=== PATIENT | male | born 1945 | race Caucasian/White ===

== ENCOUNTER 2017-01-31 23:58 | Emergency (ER) | payer MEDICARE, BC ==
[2017-02-01 00:18] VITALS: BP 138/91
--- NOTE | 2017-02-01 00:35 | EDM.PDOC ---
ED HPI GENERAL MEDICAL PROBLEM - General Chief Complaint: ENT Problem Stated Complaint: PAIN INFECTION PAIN Time Seen by Provider: 02/01/17 00:10 Source of Information: Reports: Patient History Limitations: Reports: No Limitations - History of Present Illness INITIAL COMMENTS - FREE TEXT/NARRATIVE: 71-year-old male with right sided maxillary sinus pressure that is very painful and keeping him awake. He gets fairly significant sinus infections several times a year, he was seen in the clinic earlier today and started on doxycycline. He is using Afrin nasal spray as well as full dose ibuprofen but just not getting any relief. Onset: Gradual (Over the past several days) Quality: Reports: Sharp, Stabbing, Throbbing Severity: Moderate Associated Symptoms: Reports: Headaches. Denies: Chest Pain, Fever/Chills, Nausea/Vomiting, Shortness of Breath Face Pain Score (Numeric/FACES): 6 - Related Data Allergies Allergy/AdvReac Type Severity Reaction Status Date / Time amoxicillin trihydrate Allergy Cannot Verified 02/01/17 00:05 [From Augmentin] Remember potassium clavulanate Allergy Cannot Verified 02/01/17 00:05 [From Augmentin] Remember Home Meds: Home Meds Aspirin [Ecotrin] 325 mg PO DAILY 08/18/15 [History] Insulin Glargine,Hum.Rec.Anlog [Lantus Solostar] 25 unit SQ BID 08/18/15 [ History] Lisinopril 30 mg PO DAILY 08/18/15 [History] Loratadine [Claritin] 10 mg PO DAILY 08/18/15 [History] Metoprolol Tartrate [Lopressor] 25 mg PO BID 08/18/15 [History] Tadalafil [Cialis] 10 mg PO DAILY PRN 08/18/15 [History] atorvaSTATin [Lipitor] 80 mg PO BEDTIME 08/18/15 [History] metFORMIN HCl [Metformin HCl] 1,000 mg PO BID 08/19/15 [History] Doxycycline Monohydrate 100 mg PO BID 02/01/17 [History] amLODIPine Besylate [Norvasc] 2.5 mg PO DAILY 02/01/17 [History] Past Medical History HEENT History: Reports: Allergic Rhinitis, Impaired Vision, Sinusitis Other HEENT History: wears reading glasses Cardiovascular History: Reports: Bypass, CAD, High Cholesterol, Hypertension Respiratory History: Reports: Sleep Apnea Gastrointestinal History: Reports: Colon Polyp Genitourinary History: Reports: Renal Calculus Musculoskeletal History: Reports: Arthritis, Other (See Below) Other Musculoskeletal History: rotator cuff injury right side Neurological History: Reports: Concussion Endocrine/Metabolic History: Reports: Diabetes, Type II, IDDM - Infectious Disease History Infectious Disease History: Reports: Chicken Pox, Influenza, Measles, Mumps - Past Surgical History HEENT Surgical History: Reports: Cataract Surgery Cardiovascular Surgical History: Reports: Coronary Artery Bypass GI Surgical History: Reports: Colonoscopy, Hernia Repair/Other, Polypectomy Social & Family History - Family History Family Medical History: Noncontributory - Tobacco Use Smoking Status *Q: Never Smoker Years of Tobacco use: 22 Used Tobacco, but Quit: Yes Month Tobacco Last Used: 05-19-1990 Second Hand Smoke Exposure: No - Caffeine Use Caffeine Use: Reports: Coffee - Alcohol Use Days Per Week of Alcohol Use: 7 Number of Drinks Per Day: 3 Total Drinks Per Week: 21 - Recreational Drug Use Recreational Drug Use: No ED ROS ENT - Review of Systems Review Of Systems: See Below Constitutional: Denies: Fever, Chills HEENT: Reports: Sinus Problem. Denies: Ear Pain, Throat Pain Respiratory: Denies: Shortness of Breath Cardiovascular: Denies: Chest Pain GI/Abdominal: Denies: Abdominal Pain, Nausea, Vomiting Skin: Reports: No Symptoms Neurological: Reports: Headache Psychiatric: Reports: No Symptoms ED EXAM, ENT - Physical Exam Exam: See Below Exam Limited By: No Limitations General Appearance: Alert, No Apparent Distress (Looks uncomfortable but not distressed) Nose: Other (Very tender to palpation and percussion of the maxillary and ethmoid sinus on the right side) Respiratory/Chest: No Respiratory Distress Course - Vital Signs Last Recorded V/S: Last Vital Signs Temp 97.4 F 02/01/17 00:19 Pulse 64 02/01/17 00:19 Resp 16 02/01/17 00:19 BP 138/91 H 02/01/17 00:19 Pulse Ox 94 L 02/01/17 00:19 - Re-Assessments/Exams Free Text/Narrative Re-Assessment/Exam: 02/01/17 00:33 Patient will be given 10 Vicodin for extra pain control as he continues his antibiotic and ibuprofen. He can recheck in 2-3 days if not improving satisfactorily despite the antibiotic. Departure - Departure Time of Disposition: 00:46 Disposition: Home, Self-Care 01 Condition: Good Clinical Impression: Sinusitis, acute Qualifiers: Sinusitis location: maxillary Recurrence: recurrent Qualified Code(s): J01.01 - Acute recurrent maxillary sinusitis - Discharge Information Instructions: Sinusitis, Adult, [id number] Referrals: Westley Carey MD [Primary Care Provider] - Forms: ED Department Discharge Care Plan Goals: Continue with antibiotic as prescribed, ibuprofen, and Afrin sprays. Use hydrocodone for extra pain control if needed. Consider rechecking in 2-3 days if not improving satisfactorily or return sooner if worsening such as fever, vomiting, or worsening pain
== END 2017-02-01 00:47 | disposition home or self-care (01) ==
LOC: JP.ED 23:58
DX: J01.01 Acute recurrent maxillary sinusitis (principal); E11.9 Type 2 diabetes mellitus without complications; I10 Essential (primary) hypertension; Z87.891 Personal history of nicotine dependence; Z79.4 Long term (current) use of insulin; Z79.82 Long term (current) use of aspirin; Z79.899 Other long term (current) drug therapy; Z88.1 Allergy status to other antibiotic agents
CPT/HCPCS: 99283

== ENCOUNTER 2017-08-19 06:36 | Day surgery (SDC) | payer MEDICARE, BC ==
[~2017-08-19 06:36] MED LIST: Lactated Ringers 1,000 ML IV SCH
[2017-08-19] MEDS ORDERED: Midazolam 1 MG/ML 2 ML SDV ONE (07:28)
[2017-08-19] MEDS ORDERED: Propofol 200 MG/20 ML SDV ONE (07:28)
[2017-08-19] MEDS ORDERED: fentaNYL 100 MCG/2 ML SDV ONE (07:28)
[2017-08-19 09:23] VITALS: BP 134/62
--- NOTE | 2017-08-19 12:18 | OR ---
DATE OF PROCEDURE: 08/19/2017 PREOPERATIVE DIAGNOSIS: History of colon polyps. POSTOPERATIVE DIAGNOSES: 1. Diverticulosis. 2. Multiple small colon polyps. 3. History of colon polyps. PROCEDURE PERFORMED: Colonoscopy to the cecum with biopsy resection of small polyps at proximal right colon, distal right colon, proximal transverse colon, 15 cm from the anal verge and distal rectal polyp. SURGEON: Edgard Melo MD. ANESTHESIA: IV anesthesia with monitored anesthesia care. INDICATION: This 71-year-old white male is here for a colonoscopy. He has a history of multiple colon polyps removed in the past. His last colonoscopic exam, he says , was done two years ago. I counseled him for the procedure, including risks and alternatives, and he gave his informed consent to proceed. DESCRIPTION OF PROCEDURE: The patient was placed in the left lateral decubitus position. IV anesthesia was administered by the Anesthesia Service. Time-out was held. A rectal exam was performed, which was unremarkable. The flexible video Olympus colonoscope was introduced through his anus, up his rectum and out his colon all the way to the cecum. En route, we saw multiple left-sided diverticula. There was no bleeding or inflammation associated with any of them. Once the cecum was reached, the scope was slowly withdrawn examining the mucosa throughout. In the proximal right colon, a small polyp was seen, which was removed with the biopsy forceps. Another small polyp was seen in the distal right colon, which again was removed with the biopsy forceps. In the proximal transverse colon, a third polyp was removed with the biopsy forceps. The scope was then withdrawn further with no other neoplastic lesions seen until we reached 15 cm from the anal verge. Here, a small polyp was seen which was removed with the biopsy forceps. The scope was brought back into the rectum, where it was retroflexed. The distal rectum showed a small polyp, which was removed with the biopsy forceps. The scope was straightened and removed. He tolerated the procedure well. Edgard Melo MD /[id number] MTDD
== END 2017-08-19 09:33 | disposition home or self-care (01) ==
LOC: JP.SDS 06:36
PROVIDERS: ATTEND Surgery
DX: D12.2 Benign neoplasm of ascending colon (principal); D12.4 Benign neoplasm of descending colon; D12.3 Benign neoplasm of transverse colon; K63.5 Polyp of colon; K62.1 Rectal polyp; K57.30 Diverticulosis of large intestine without perforation or abscess without bleeding; I12.9 Hypertensive chronic kidney disease with stage 1 through stage 4 chronic kidney disease, or unspecified chronic kidney disease; E11.22 Type 2 diabetes mellitus with diabetic chronic kidney disease; N18.9 Chronic kidney disease, unspecified; E66.9 Obesity, unspecified; G47.33 Obstructive sleep apnea (adult) (pediatric); Z87.891 Personal history of nicotine dependence; Z86.010 Personal history of colon polyps; Z88.1 Allergy status to other antibiotic agents
CPT/HCPCS: 45380; J2250; J2704; J3010; J7120; 88305

== ENCOUNTER 2019-08-20 06:22 | Day surgery (SDC) | payer BC, MEDICARE ==
[2019-08-20] MEDS ORDERED: Sodium Chloride 0.9% 1,000 ML IV SCH (07:00)
[2019-08-20] MEDS ORDERED: Midazolam 1 MG/ML 2 ML SDV ONE (07:20)
[2019-08-20] MEDS ORDERED: Propofol 200 MG/20 ML SDV ONE (07:20)
[2019-08-20] MEDS ORDERED: fentaNYL 100 MCG/2 ML SDV ONE (07:20)
--- NOTE | 2019-08-20 09:55 | OR ---
DATE OF PROCEDURE: 08/20/2019 SURGEON: Norman Fernández MD PROCEDURE: Colonoscopy. FINDINGS: 1. Transverse colon polyp, approximately 5 mm, completely removed using cold biopsy forceps. 2. Mass at 40 cm, most consistent with lipoma (biopsied multiple times using cold biopsy forceps). 3. Sigmoid colon polyp approximately 5 mm, completely removed using cold biopsy forceps. 4. Diverticulosis, moderate, mostly limited to sigmoid colon. PREOPERATIVE DIAGNOSIS: Screening colonoscopy. POSTOPERATIVE DIAGNOSIS: Screening colonoscopy. RISKS: Risks, benefits, alternatives, and limitations including, but not limited to infection, bleeding, and perforation were explained to the patient, who wished to proceed. PROCEDURE IN DETAIL: The patient was placed in left lateral decubitus position. Digital rectal exam was performed without abnormality. Scope was introduced and advanced atraumatically to the ileocecal valve. A photo was taken of this. The scope was brought back through the ascending, transverse, descending colon, and retroflexed. The aforementioned polyps were identified and completely removed. Diverticulosis would be described as mild, limited to sigmoid colon, and without evidence of diverticulitis or bleeding. No abnormalities on retroflexion. The patient tolerated the procedure well. Norman Fernández MD /[id number]
[2019-08-20 10:20] VITALS: BP 105/69; PULSE 54
== END 2019-08-20 09:55 | disposition home or self-care (01) ==
LOC: JP.SDS 06:22
PROVIDERS: ATTEND Surgery
DX: Z12.11 Encounter for screening for malignant neoplasm of colon (principal); D12.3 Benign neoplasm of transverse colon; K57.30 Diverticulosis of large intestine without perforation or abscess without bleeding; E66.9 Obesity, unspecified; E11.22 Type 2 diabetes mellitus with diabetic chronic kidney disease; I12.9 Hypertensive chronic kidney disease with stage 1 through stage 4 chronic kidney disease, or unspecified chronic kidney disease; N18.2 Chronic kidney disease, stage 2 (mild); Z68.32 Body mass index [BMI] 32.0-32.9, adult; Z86.010 Personal history of colon polyps
CPT/HCPCS: 45380; 82962; 88305; J2250; J2704; J3010; J7030

== ENCOUNTER 2024-07-08 07:34 | Day surgery (SDC) | payer MEDICARE ==
[2024-07-08] MEDS ORDERED: Propofol 200 MG/20 ML SDV ONE (07:45)
[2024-07-08] MEDS ORDERED: fentaNYL 100 MCG/2 ML SDV ONE (07:45)
[2024-07-08] MEDS: Lactated Ringers 1,000 ML IV SCH (08:20)
[2024-07-08 10:30] VITALS: BP 130/65; PULSE 48
== END 2024-07-08 10:39 | disposition home or self-care (01) ==
LOC: JP.SDS 07:34
PROVIDERS: ATTEND Surgery
DX: Z12.11 Encounter for screening for malignant neoplasm of colon (principal); D12.2 Benign neoplasm of ascending colon; D12.3 Benign neoplasm of transverse colon; D12.4 Benign neoplasm of descending colon; K57.30 Diverticulosis of large intestine without perforation or abscess without bleeding; E11.22 Type 2 diabetes mellitus with diabetic chronic kidney disease; I12.9 Hypertensive chronic kidney disease with stage 1 through stage 4 chronic kidney disease, or unspecified chronic kidney disease; N18.30 Chronic kidney disease, stage 3 unspecified; E78.5 Hyperlipidemia, unspecified
CPT/HCPCS: 00811; 45380; 45385; J2704; J3010; J7120